=== PATIENT | female | born 1960 ===

== ENCOUNTER 2020-07-04 12:15 | Inpatient (IN) | payer OTHER ==
[~2020-07-04] VITALS: Ht 149.9 cm; Wt 51.7 kg
[2020-07-04] MEDS ORDERED: PRAVASTATIN SOD20 MG PO (16:22)
[2020-07-04] MEDS ORDERED: SYNTHROID100 MCG PO (16:22)
== END 2020-07-07 14:02 | disposition home or self-care (01) | DRG 741 ==
LOC: OB/GYN 07-05 05:00 → O/R 07-05 05:00 → OB/GYN 07-05 12:15
PROVIDERS: ADMIT Specialist; ATTEND Specialist
PROC: 0UT24ZZ Resection of Bilateral Ovaries, Percutaneous Endoscopic Approach (ICD-10-PCS; 2020-07-05)
PROC: 0UT74ZZ Resection of Bilateral Fallopian Tubes, Percutaneous Endoscopic Approach (ICD-10-PCS; 2020-07-05)
PROC: 07BC4ZZ Excision of Pelvis Lymphatic, Percutaneous Endoscopic Approach (ICD-10-PCS; 2020-07-05)
PROC: 0UT94ZZ Resection of Uterus, Percutaneous Endoscopic Approach (ICD-10-PCS; principal; 2020-07-05 16:30)
DX: C54.1 Malignant neoplasm of endometrium (principal); I10 Essential (primary) hypertension